=== PATIENT | female | born 1950 | race African-American/Black ===

== ENCOUNTER → 2019-09-06 | Outpatient (CLI) | payer BC ==
[~2019-09-06] MED LIST: ASA81BEC PO; EFFIENT10 MG PO; METFORMIN HCL500 M3 PO; PRAVASTATIN SOD80 MG PO; TOPROL XL50 MG PO; VASCEPA1 GM PO; VITAMIN D310 MC2 PO; ZESTRIL20 MG PO
== END ==
LOC: SJCVCIMAG 09:50
DX: I20.0 Unstable angina (principal); I10 Essential (primary) hypertension; E78.00 Pure hypercholesterolemia, unspecified; R93.1 Abnormal findings on diagnostic imaging of heart and coronary circulation

== ENCOUNTER → 2019-09-09 | Outpatient (CLI) | payer MEDICARE ==
[~2019-09-09] VITALS: Ht 154.9 cm; Wt 73.0 kg
[~2019-09-09] MED LIST changes: -EFFIENT10 MG PO; -VASCEPA1 GM PO
--- NOTE | ~2019-09-09 | EKG ---
[facility] [place] [address] ELECTROCARDIOGRAM REPORT Name: JORGE MAYA Room #: REG [facility]#: [id number] Admission: 09/09/19 Attend Phys: Dhaval Crawford MD Discharge: Date of : 48 Report #: [id number] THIS REPORT FOR: cc: Nolberto Ashford MD, Stanley P. MD Epiphany, Epiphany MD ~ THIS REPORT FOR: //name// [facility] Test Date: 2019-09-09 Test Time: 09:46:11 Pat Name: JORGE MAYA Department: Room: Gender: F Dough Braker: [facility] : 1950 Requested By: Dhaval Crawford Order Number: [id number] MD: Measurements Intervals [place] Rate: 57 P: 33 [place]: 176 QRS: -22 QRSD: 96 T: 42 QT: 433 QTc: 422 Interpretive Statements Sinus rhythm Probable left ventricular hypertrophy Inferior infarct, old No previous ECG available for comparison [email or web address] By: Epiphany Epiphany, /EPI
[2019-09-09 09:59] LABS: HEMATOCRIT 41.2 % (37.0-47.0); HEMOGLOBIN 13.5 gm/dL (12.0-15.0); MCHC 32.8 g/dL (28.0-37.0); MCV 94.7 fL (80.0-100.0); RBC 4.36 mil/uL (4.20-5.00); RDW 13.8 % (10.5-14.5); WBC 4.8 thou/uL (4.0-11.0)
[2019-09-09 10:09] LABS: CALCIUM 9.5 mg/dL (8.5-10.1); CREATININE 1.2 mg/dL (0.6-1.0); POTASSIUM 4.4 mmol/L (3.5-5.1)
[2019-09-09 10:19] VITALS: BP 146/76
--- NOTE | 2019-09-10 09:51 | CATHLAB ---
[facility] [address] [place] [address] INVASIVE PROCEDURE REPORT Name: JORGE MAYA Room #: REG [facility]#: [id number] Admission: 09/09/19 Attend Phys: Dhaval Crawford MD Discharge: Date of : 48 Report #: [id number] THIS REPORT FOR: cc: Nolberto Ashford MD, Stanley P. MD Park, Jin S. MD ~ APPROVED REPORT Study performed: 09/09/2019 10:42:02 Patient Details The patient is a 68 year-old female Event Personnel Dhaval Crawford Electric Razor Mechanic, Deepti Drake RN RN, Annel Pollock, Sharron Clayton Monitor Procedures Performed Art Access - R femoral artery* Left Heart Cath w/or w/o Coronaries [id number] [facility] Hemostasis with Manual pressure 49368 Initial Mod Sed Same Phys/QHP Gr5y 161344 Indication Dyspnea, Unstable angina , Chest pain Risk Factors Hypercholesterolemia, Coronary Artery DiseaseHypertension, Diabetes Procedure Narrative The Right Groin^ was infiltrated with subcutaneous anesthesia. A PINNACLE 4FR Sheath #[id number] sheath was inserted into the RFA 4F^. Coronary angiography was performed using coronary diagnostic catheters. The right coronary system was accessed and visualized with a jr4 catheter. The left coronary system was accessed and visualized with a jl4 catheter. The left ventricle was accessed and visualized with a angle pig catheter. Hemostasis was obtained with manual pressure following sheath removal without any complications. There was no hematoma. Intraoperative Conscious Sedation Sedation start time: 1124 Case end Time: 1140 Fentanyl 50 mcg Versed 1 mg [facility] [address] [place] [address] INVASIVE PROCEDURE REPORT Name: ZULMAJORGE Room #: REG [facility]#: [id number] Admission: 09/09/19 Attend Phys: Dhaval Crawford MD Discharge: Date of : 48 Report #: [id number] Fluoro Time: 3.00 minutes Dose: DAP 4753.00 cGycm2 1299 mGy Contrast Type and Amount: Omnipaque 75 ml Coronary Angiography The patient's coronary anatomy is co- dominant. Diagnostic Cath Left Main The left main artery is a large-caliber vessel, patent with no flow-limiting lesions. LAD There is a severe occlusion in the mid LAD, 70%. The terminal segment of the LAD has severe diffuse disease. Diagonal 1 This is a small to moderate size caliber vessel with a severe proximal stenosis, 80%. Diagonal 2 This is a small to moderate size caliber vessel, patent with no flow-limiting lesions. Circumflex The left circumflex artery is a codominant vessel with a severe occlusion in the mid segment, 90%. OM1 This is a small to moderate size caliber vessel, patent with no flow-limiting lesions. OM2 This is a small to moderate size caliber vessel, with severe diffuse disease OM3 This is a small to moderate size caliber vessel, patent with no flow-limiting lesions. Right Coronary The RCA is totally occluded in the proximal segment. R PDA This vessel is filled via collateral circulation from the LAD. Left Ventriculography The left ventricle is normal in size with normal contractility. The left ventricular ejection fraction is estimated to be 55-60%. Hemodynamics The aortic pressure is 146/76 mmHg with a mean of 105 mmHg. The left ventricular pressure is 151/7 mmHg with a mean of mmHg. The left ventricular end diastolic pressure is 18 mmHg. Conclusion 1. Severe three-vessel coronary artery disease. 2. Codominant system. 3. Normal LV systolic function. [facility] [address] [place] [address] INVASIVE PROCEDURE REPORT Name: JORGE MAYA Room #: REG [facility]#: [id number] Admission: 09/09/19 Attend Phys: Dhaval Crawford MD Discharge: Date of : 48 Report #: [id number] 4. Recommend aggressive risk factor management and CV consultation for surgery. <ELECTRONICALLY SIGNED> By: Dhaval Crawford MD 09/10/1951 9 9 Dhaval Crawford MD /INF
== END | disposition home or self-care (01) ==
LOC: CATH 08:58
PROVIDERS: Internal Medicine Cardiovascular Disease
DX: I25.110 Atherosclerotic heart disease of native coronary artery with unstable angina pectoris (principal); R07.9 Chest pain, unspecified; I10 Essential (primary) hypertension; E11.9 Type 2 diabetes mellitus without complications; E78.00 Pure hypercholesterolemia, unspecified; Z98.890 Other specified postprocedural states; Z79.899 Other long term (current) drug therapy; Z85.3 Personal history of malignant neoplasm of breast; Z79.82 Long term (current) use of aspirin; R06.00 Dyspnea, unspecified

== ENCOUNTER 2019-09-26 07:46 | Outpatient (CLI) | payer MEDICARE ==
[~2019-09-26] VITALS: Ht 162.6 cm; Wt 76.0 kg
[2019-09-26 08:20] VITALS: BP 144/86
[2019-09-26] MEDS ORDERED: EFFIENT10 MG PO (08:35)
[2019-09-26] MEDS ORDERED: VASCEPA1 GM PO (08:35)
[2019-09-26 08:56] LABS: HEMATOCRIT 36.9 % (37.0-47.0); HEMOGLOBIN 12.3 gm/dL (12.0-15.0); MCH 31.5 pg (26.0-34.0); MCHC 33.3 g/dL (28.0-37.0); MCV 94.5 fL (80.0-100.0); RBC 3.9 mil/uL (4.20-5.00); RDW 13.4 % (10.5-14.5); WBC 3.6 thou/uL (4.0-11.0)
[2019-09-26 08:59] LABS: CALCIUM 9.8 mg/dL (8.5-10.1); CREATININE 1.3 mg/dL (0.6-1.0); POTASSIUM 3.7 mmol/L (3.5-5.1)
[2019-09-26 11:30] VITALS: BP 137/66
--- NOTE | 2019-09-26 12:59 | CATHLAB ---
[facility] [place] [address] INVASIVE PROCEDURE REPORT Name: JORGE MAYA Room #: REG CHANTAL Sirisha.#: [id number] Admission: 09/26/19 Attend Phys: Dhaval Crawford MD Discharge: Date of : 48 Report #: [id number] THIS REPORT FOR: cc: Nolberto Ashford MD, Stanley P. MD Park, Jin S. MD ~ APPROVED REPORT Study performed: 09/26/2019 08:51:33 Patient Details Patient Status: Out-Patient Room #: The patient is a 68 year-old female Event Personnel Dhaval Crawford Costumed Character Entertainer, Katerine Jin RN RN, Chan Ferrara RTBrody Ortega David Monitor Procedures Performed BAILEY Place w/wo Plasty Single CIRC [id number] Indication Dyspnea, Unstable angina , Chest pain, The patient presented with unstable angina, cardiac catheterization on September 09 revealed severe multivessel disease. The RCA is occluded with partial collateral filling to a small PDA. The patient has severe disease in small vessels including the diagonal and OM vessels. The apical LAD has severe diffuse disease. She did undergo a consultation with CV surgery, deemed not a good candidate for open heart surgery. She presents for elective PCI. Risk Factors Hypercholesterolemia, Coronary Artery DiseaseHypertension, Diabetes Procedure Narrative The Right Groin^ was infiltrated with 1% Lidocaine subcutaneous anesthesia. A PINNACLE 6FR Sheath #[id number] sheath was inserted into the RFA^. Coronary angiography was performed using coronary diagnostic catheters. Closure device was deployed with a 6 Fr MYNX. The patient tolerated the procedure well and there were no complications associated with the procedure. Intraoperative Conscious Sedation Sedation start time: 9.57 Case end Time: [facility] [address] [place] [address] INVASIVE PROCEDURE REPORT Name: JORGE MAYA Room #: REG [facility]#: [id number] Admission: 09/26/19 Attend Phys: Dhaval Crawford MD Discharge: Date of : 48 Report #: [id number] 10.51 Fentanyl 50 mcg Versed 1 mg Fluoro Time: 11.25 minutes Dose: DAP 79133.20 cGycm2 1928 mGy Contrast Type and Amount: Visipaque 210 ml [place] Artery Percent Stenosis Please see the cardiac catheterization report from September 09 for full details of her coronary anatomy. She presents electively for PCI of the left circumflex arteries. Diagnostic Cath Circumflex The left circumflex artery is a codominant vessel with severe occlusions in the proximal and mid segments. The first and third OM vessels are small caliber vessels with severe stenoses. The distal left circumflex artery and OM vessels are widely patent with no flow-limiting lesions. Hemodynamics The aortic pressure is 149/69 mmHg with a mean of 63 mmHg. PCI Technique Lesion Percutaneous coronary intervention was performed on the mid circumflex artery segment. The lesion stenosis prior to intervention was 90% with ANTONIO 3 flow. A VISTA 6FR XB 3.5 #[id number] Guide Catheter was used to engage the ostium. A Luge Wire .014 x 182CM #[id number] Interventional Guidewire was used to cross the lesion. BALLOON DILATION A Balloon catheter Euphora RX 2.25 x 15 #[id number] was inserted and inflated up to 14.00atm for 23seconds. Additional Inflation: 14.00atm for 20seconds. Additional Inflation: 14.00atm for 9seconds. STENT DEPLOYMENT A drug-eluting stent RESOLUTE RUTH RX 2.75 X 22 #[id number] was inserted and inflated up to 12.00atm for 19seconds. POST STENT DEPLOYMENT BALLOON DILATION A Balloon catheter TREK NC RX 2.75 X 15 #[id number] was inserted and inflated up to 18.00atm for 25seconds. Additional Inflation: 18.00atm for 13seconds. Final angiography reveals 0 % stenosis with ANTONIO 3 flow. PCI Technique Lesion [address] [address] INVASIVE PROCEDURE REPORT Name: JORGE MAYA [facility] [id number] Admission: 09/26/19 Attend Phys: Dhaval Crawford MD Discharge: Date of : 48 Report #: [id number] Percutaneous coronary intervention was performed on the proximal circumflex artery segment. The lesion stenosis prior to intervention was 80% with ANTONIO 3 flow. A VISTA 6FR XB 3.5 #[id number] Guide Catheter was used to engage the ostium. A Luge Wire .014 x 182CM #[id number] Interventional Guidewire was used to cross the lesion. Balloon Dilation A Balloon catheter Euphora RX 2.25 x 15 #[id number] was inserted and inflated up to 15atm for 26seconds. Stent Deployment A drug-eluting stent RESOLUTE RUTH RX 3.0 X 12 #[id number] was inserted and inflated up to 15atm for 26seconds. Post Stent Deployment Balloon Dilation A Balloon catheter TREK NC RX 3.0 X 12 #[id number] was inserted and inflated up to 18atm for 15seconds. Additional Inflation: 18atm for 22seconds. Final angiography reveals 0 % stenosis with ANTONIO 3 flow. Conclusion 1. Successful insertion of 2 drug-eluting stents into the proximal and mid segments of a codominant left circumflex artery. 2. Recommend dual antiplatelet therapy and aggressive risk factor management. <ELECTRONICALLY SIGNED> By: Dhaval Crawford MD 09/26/19 1258 1258 1258 Dhaval Crawford MD /INF
[2019-09-26 16:30] VITALS: BP 141/70
--- NOTE | 2019-09-26 19:03 | NUR ---
PT TO 211 AT 1330 FROM RESIDENTIAL BUILDER, RIGHT GROIN MYNX CDI, NO BLEEDING, NO HEMATOMA NOTED ON PALPATION, ASSESSED, VSS, A+O X 4, FAMILY AT BEDSIDE, REVIEWED POC, PT AND HER BOTH VERBALIZED UNDERSTANDING, REVIEWED STAFF, BEDROOM, CALL LIGHT BY PT'S RIGHT HAND, PT AMBULATED AT 1500, SLOW, STEADY GAIT, VOIDED IN BATHROOM, MISSED THE HAT, RESTING IN BED.
[2019-09-26 19:28] VITALS: BP 126/65
[2019-09-27 00:21] VITALS: BP 143/68
[2019-09-27 05:05] VITALS: BP 154/74
--- NOTE | 2019-09-27 05:26 | NUR ---
ASSUMED PT CARE AT 1900. PT IS ALERT AND ORIENTED, NO SIGN OF DISTRESS NOTED IN PT. RIGHT GROIN SITE IS INTACT, NO BLEEDING OR BRUSING NOTED. DENIES ANY PAIN. ASSESSMENT COMPLETED AND DOCUMENTED. PT IS STABLE THROUGHOUT THE NIGHT. DENIES ANY FURTHER NEEDS AT THIS TIME.
[2019-09-27 05:46] LABS: HEMATOCRIT 34.5 % (37.0-47.0); HEMOGLOBIN 11.5 gm/dL (12.0-15.0); MCH 31.5 pg (26.0-34.0); MCHC 33.2 g/dL (28.0-37.0); MCV 94.9 fL (80.0-100.0); RBC 3.63 mil/uL (4.20-5.00); RDW 13.6 % (10.5-14.5); WBC 5.7 thou/uL (4.0-11.0)
[2019-09-27 06:03] LABS: ALBUMIN 3.3 g/dL (3.4-5.0); CALCIUM 8.6 mg/dL (8.5-10.1); CREATININE 1.2 mg/dL (0.6-1.0); POTASSIUM 3.8 mmol/L (3.5-5.1); TOTAL BILIRUBIN 1.2 mg/dL (<0.1-1.0); TOTAL PROTEIN 6.1 g/dL (6.4-8.2)
[2019-09-27 07:18] VITALS: BP 148/72
--- NOTE | 2019-09-27 09:29 | EKG ---
[facility] [place] [address] ELECTROCARDIOGRAM REPORT Name: JORGE MAYA Room #: 211-P [facility]#: [id number] Admission: 09/26/19 Attend Phys: Dhaval Crawford MD Discharge: Date of : 48 Report #: [id number] THIS REPORT FOR: cc: Nolberto Ashford MD, Stanley P. MD Lundgren,Tye Díaz MD [facility] ~ THIS REPORT FOR: //name// [facility] Test Date: 2019-09-26 Test Time: 08:20:34 Pat Name: JORGE MAYA Department: Room: Gender: Assistance Coordinator: Izabel FAITH : 1950 Requested By: Dhaval Crawford Order Number: [id number] MD: Tye Hernandez Measurements Intervals [place] Rate: 53 P: 42 [place]: 177 QRS: -16 QRSD: 99 T: 54 QT: 463 QTc: 435 Interpretive Statements Sinus rhythm Nonspecific ST segment abnormality Compared to ECG 09/09/2019 09:46:11 No significant change was found Electronically Signed On 09-27-2019 9:28:48 BED RUBBER by Tye Hernandez [email or web address] <ELECTRONICALLY SIGNED> By: Tye Hernandez MD, FAC 09/27/19 0928 9 9 Tye Hernandez MD, [facility] /EPI
--- NOTE | 2019-09-27 09:36 | EKG ---
[facility] [place] [address] ELECTROCARDIOGRAM REPORT Name: JORGE MAYA Room #: 211-P [facility]#: [id number] Admission: 09/26/19 Attend Phys: Dhaval Crawford MD Discharge: Date of : 48 Report #: [id number] THIS REPORT FOR: cc: Nolberto Ashford MD, Stanley P. MD Lundgren,Tye Díaz MD [facility] THIS REPORT FOR: //name// [facility] Test Date: 2019-09-26 Test Time: 13:00:56 Pat Name: JORGE MAYA Department: Room: Gender: Stakes Player: Izabel FAITH : 1950 Requested By: Dhaval Crawford Order Number: [id number] MD: Tye Hernandez Measurements Intervals [place] Rate: 59 P: 5 [place]: 191 QRS: -1 QRSD: 91 T: 51 QT: 449 QTc: 445 Interpretive Statements Sinus rhythm Borderline T abnormalities, lateral leads Compared to ECG 09/09/2019 09:46:11 T-wave abnormality now present Electronically Signed On 09-27-2019 9:35:10 SALES CORRESPONDENCE CLERK by Tye Hernandez [email or web address] <ELECTRONICALLY SIGNED> By: Tye Hernandez MD, FAC 09/27/19 0935 1300 1300 Tye Hernandez MD, [facility] /EPI
[2019-09-27 10:13] VITALS: BP 148/72
--- NOTE | 2019-09-27 11:00 | NUR ---
ASSUMED CARE 0700. ALERT X4 FROM HOME WITH SPOUCE, DENIES CHEST PAIN, DENIES SOB, RIGHT GROIN SITE C/D/I, UP AB ABDI. CARDIAC GINSENG FARMER EDUCATED PATIENT ON CATH SITE CARE. PRIMARY RN REVIEWED POST CARDIAC CATH CARE, HOME MEDICATIONS, DISCHARGE PAPERS, AND FOLLOW UP DR APPOINTMENT. SINUS LARISSA ON TELE. IV AND TELE REMOVED. WILL DC HOME WITH SELF CARE.
--- NOTE | 2019-09-27 16:33 | EKG ---
[facility] [place] [address] ELECTROCARDIOGRAM REPORT Name: JORGE MAYA Room #: DEP [facility]#: [id number] Admission: 09/26/19 Attend Phys: Dhaval Crawford MD Discharge: 09/27/19 Date of : 48 Report #: [id number] THIS REPORT FOR: cc: Nolberto Ashford MD, Stanley P. MD Park, Jin S. MD ~ THIS REPORT FOR: //name// [facility] Test Date: 2019-09-27 Test Time: 08:00:27 Pat Name: JORGE MAYA Department: Room: [facility] Gender: F Refrigerator Tester: OLI : 1950 Requested By: Dhaval Crawford Order Number: [id number] MD: Dhaval Crawford Measurements Intervals [place] Rate: 56 P: 54 [place]: 181 QRS: -17 QRSD: 93 T: 55 QT: 454 QTc: 439 Interpretive Statements Sinus rhythm Borderline left axis deviation Compared to ECG 09/09/2019 09:46:11 Myocardial infarct finding no longer present Electronically Signed On 09-27-2019 16:31:50 MACHINIST WOOD by Dhaval Crawford [email or web address] <ELECTRONICALLY SIGNED> By: Dhaval Crawford MD 09/27/19 1631 9 9 Dhaval Crawford MD /JUWAN
[2019-09-27 22:07] LABS: GLYCOHEMOGLOBIN (HGB A1C) 5.8 % (4.8-5.6)
--- NOTE | 2019-09-28 08:28 | D ---
[facility] [place] [address] DISCHARGE SUMMARY Name: JORGE MAYA [facility] [id number] Admission: 09/26/19 Attend Phys: Dhaval Crawford MD Discharge: 09/27/19 Date of : 48 Report #: [id number] THIS REPORT FOR: cc: Nolberto Ashford MD, Stanley P. MD Park, Jin S. MD ~ THIS REPORT FOR: //name// CC: Dhaval Ashford DATE OF SERVICE: 09/27/2019 FINAL DIAGNOSES: 1. Coronary artery disease, status post percutaneous coronary intervention. 2. Diabetes mellitus. 3. Hypertension. 4. Hypercholesterolemia. 5. Gastroesophageal reflux disease. HOSPITAL COURSE: See the original H and P for full details. The patient presented with chest pain, shortness of breath with walking. She had an abnormal stress test. Cardiac catheterization revealed severe multivessel disease. She did undergo a consultation with CV Surgery. She was deemed not a suitable candidate for bypass as she has significant disease in small vessels as well as diffuse distal disease. She underwent PCI with placement of 2 drug-eluting stents into the proximal and mid segments of the left circumflex artery. She does have mild renal insufficiency and the creatinine is stable. She will be discharged home today. She will continue with aspirin once a day, lisinopril 20 mg daily, metformin, Pravachol, metoprolol, prasugrel 10 mg daily and Vascepa. She will be given a followup appointment in the office. <ELECTRONICALLY SIGNED> By: Dhaval Crawford MD 09/28/19 0828 0853 0909 Dhaval Crawford MD /nt
== END 2019-09-27 11:35 | disposition home or self-care (01) ==
LOC: CATH 07:46 → 2N 14:07 → CATH 14:40
PROVIDERS: Internal Medicine Cardiovascular Disease
DX: I25.110 Atherosclerotic heart disease of native coronary artery with unstable angina pectoris (principal); R06.00 Dyspnea, unspecified; R07.9 Chest pain, unspecified; I10 Essential (primary) hypertension; E11.9 Type 2 diabetes mellitus without complications; E78.00 Pure hypercholesterolemia, unspecified; Z85.3 Personal history of malignant neoplasm of breast; Z79.4 Long term (current) use of insulin; Z98.890 Other specified postprocedural states; Z79.899 Other long term (current) drug therapy; Z79.82 Long term (current) use of aspirin
CPT/HCPCS: 10081

== ENCOUNTER 2019-10-22 09:28 | Observation (INO) | payer MEDICARE ==
[2019-10-22] VITALS (12 sets, daily range): BP systolic 107–154; BP diastolic 50–81
[~2019-10-22] VITALS: Ht 154.9 cm; Wt 68.5 kg
[2019-10-22 07:35] LABS: HEMATOCRIT 36.1 % (37.0-47.0); HEMOGLOBIN 12.1 gm/dL (12.0-15.0); MCH 32.1 pg (26.0-34.0); MCHC 33.6 g/dL (28.0-37.0); MCV 95.5 fL (80.0-100.0); RBC 3.78 mil/uL (4.20-5.00); RDW 13.6 % (10.5-14.5); WBC 3.2 thou/uL (4.0-11.0)
[2019-10-22 07:42] LABS: CALCIUM 9.7 mg/dL (8.5-10.1); CREATININE 1.1 mg/dL (0.6-1.0); POTASSIUM 3.8 mmol/L (3.5-5.1)
--- NOTE | 2019-10-22 08:29 | EKG ---
[facility] [place] [address] ELECTROCARDIOGRAM REPORT Name: JORGE MAYA Room #: PRE [facility].#: [id number] Admission: Attend Phys: Dhaval Crawford MD Discharge: Date of : 48 Report #: [id number] THIS REPORT FOR: cc: Nolberto Ashford MD, Stanley P. MD Lundgren, Craig H. MD [facility] ~ THIS REPORT FOR: //name// [facility] Test Date: 2019-10-22 Test Time: 06:55:49 Pat Name: JORGE MAYA Department: Room: Gender: F Cream Hauler: OLI : 1950 Requested By: Dhaval Crawford Order Number: [id number] MD: Tye Hernandez Measurements Intervals [place] Rate: 51 P: 39 [place]: 181 QRS: -22 QRSD: 98 T: 43 QT: 466 QTc: 430 Interpretive Statements Sinus bradycardia Otherwise no significant abnormality Compared to ECG 09/27/2019 08:00:27 No significant changes Electronically Signed On 10-22-2019 8:28:10 CDT by Tye Hernandez [email or web address] <ELECTRONICALLY SIGNED> By: Tye Hernandez MD, [facility] 10/22/19827 4 4 Tye Hernandez MD, [facility] /EPI
[~2019-10-22 09:28] MED LIST changes: +EFFIENT10 MG PO; +IMDUR 30 MG TAB30 M1 PO; +LIPITOR40 MG PO; +VASCEPA1 GM PO
--- NOTE | 2019-10-22 10:12 | EKG ---
[facility] [place] [address] ELECTROCARDIOGRAM REPORT Name: JORGE MAYA Room #: REG [facility]#: [id number] Admission: 10/22/19 Attend Phys: Dhaval Crawford MD Discharge: Date of : 48 Report #: [id number] THIS REPORT FOR: cc: Nolberto Ashford MD, Stanley P. MD Couchonnal,Diego Khan MD ~ THIS REPORT FOR: //name// [facility] Test Date: 2019-10-22 Test Time: 09:34:44 Pat Name: JORGE MAYA Department: Room: Gender: F Cardiovascular Surgical Tech: [facility] : 1950 Requested By: Dhaval Crawford Order Number: [id number] MD: Diego Ramirez Measurements Intervals [place] Rate: 53 P: 54 [place]: 185 QRS: -19 QRSD: 101 T: 74 QT: 471 QTc: 443 Interpretive Statements Sinus rhythm Borderline left axis deviation Compared to ECG 10/22/2019 06:55:49 Sinus bradycardia no longer present Electronically Signed On 10-22-2019 10:10:59 CDT by Diego Ramirez [email or web address] <ELECTRONICALLY SIGNED> By: Diego Ramirez MD 10/22/19 1010 0934 Diego Ramirez MD /EPI
--- NOTE | 2019-10-22 13:49 | CATHLAB ---
[facility] [place] [address] INVASIVE PROCEDURE REPORT Name: JORGE MAYA Room #: 207-P [facility] Tim Pichardo#: [id number] Admission: 10/22/19 Attend Phys: Dhaval Crawford MD Discharge: Date of : 48 Report #: [id number] THIS REPORT FOR: cc: Nolberto Ashford MD, Stanley P. MD Park, Jin S. MD ~ APPROVED REPORT Study performed: 10/22/2019 07:31:53 Patient Details Patient Status: Out-Patient Room #: The patient is a 68 year-old female Event Personnel Dhaval Crawford Silo Filler, Makayla Leonard RTR, GRAIN SCOOPER Monitor, Deepti Drake RN RN, Sharron Clayton Procedures Performed Art Access - L femoral artery* BAILEY Place w/wo Plasty Single LAD 069155 87637 Initial Mod Sed Same Phys/QHP Gr5y 080947 89172 Mod Sed Same Phys/QHP Ea 987536 Hemostasis w/ Mynx Indication Dyspnea, Chest pain, The patient returns for a staged angioplasty involving the LAD. She has multivessel disease, did undergo a CV consultation. She was deemed a poor candidate as she had severe disease in small caliber vessels, as well as severe distal disease. Risk Factors Hypercholesterolemia, Coronary Artery DiseaseHypertension, Diabetes Previous Procedures/Diagnoses Previous PCI Procedure Narrative The Left Groin^ was infiltrated with 1% Lidocaine subcutaneous anesthesia. A PINNACLE 6FR Sheath #[id number] sheath was inserted into the LFA^. Coronary angiography was performed using coronary diagnostic catheters. The left coronary system was accessed and visualized with a VISTA 6FR XB 3.5 #[id number] catheter. Pre-demployment femoral angiogram was performed . Closure device was deployed with a 6 Fr MYNXGRIP 6/7F #[id number]. The patient tolerated the procedure well [address] [address] INVASIVE PROCEDURE REPORT Name: DANNIE MAYAINE Room #: 207-[facility] IN M.R.#: [id number] Admission: 10/22/19 Attend Phys: Dhaval Crawford MD Discharge: Date of : 48 Report #: [id number] and there were no complications associated with the procedure. There was no hematoma. Intraoperative Conscious Sedation Sedation start time: 08:03 Case end Time: 09:00 Fentanyl 100 mcg Versed 1 mg Fluoro Time: 11.29 minutes Dose: DAP 7577.30 cGycm2 1106 mGy Contrast Type and Amount: Omnipaque 180 ml Coronary Angiography The patient's coronary anatomy is co- dominant. Diagnostic Cath LAD There is a severe occlusion involving the proximal/mid LAD segment, 80%. Diagonal 1 This is a small-caliber vessel with a severe ostial stenosis. Circumflex This is a codominant vessel, with patent stents in the mid segments. OM1 This is a small-caliber vessel with a severe ostial stenosis. OM2 This is a patent vessel, with no flow-limiting lesions. OM3 This is a patent vessel, with no flow-limiting lesions. Right Coronary The RCA is occluded, the distal vessel filled via collateral circulation. Hemodynamics The aortic pressure is 156/71 mmHg with a mean of 105 mmHg. PCI Technique Lesion Percutaneous coronary intervention was performed on the proximal/mid left anterior descending artery segment. The lesion stenosis prior to intervention was 80% with ANTONIO flow. A VISTA 6FR XB 3.5 #[id number] Guide Catheter was used to engage the ostium. A Luge Wire .014 x 182CM #[id number] Interventional Guidewire was used to cross the lesion. BALLOON DILATION A Balloon catheter Euphora RX 2.25 x 15 #[id number] was inserted and inflated up to 12.00atm for 24seconds. Additional Inflation: 14.00atm for 30seconds. [facility] [address] [address] INVASIVE PROCEDURE REPORT Name: JORGE MAYA Room #: 207-P [facility] IN [facility].#: [id number] Admission: 10/22/19 Attend Phys: Dhaval Crawford MD Discharge: Date of : 48 Report #: [id number] STENT DEPLOYMENT A drug-eluting stent RESOLUTE RUTH RX 2.75 X 30 #[id number] was inserted and inflated up to 16.00atm for 26seconds. POST STENT DEPLOYMENT BALLOON DILATION A Balloon catheter TREK NC RX 3.0 X 15 #[id number] was inserted and inflated up to 18.00atm for 14seconds. Additional Inflation: 18.00atm for 16seconds. Final angiography reveals 0 % stenosis with NATONIO 3 flow. Conclusion 1. Successful insertion of a drug-eluting stent into the proximal/mid LAD segment. There is severe diffuse disease in the apical LAD. 2. There are patent stents in the left circumflex artery. 3. Severe disease in small caliber vessels including first diagonal artery and OM1. 4. Occluded RCA with distal collateral. 5. Recommend dual antiplatelet therapy and aggressive risk factor management. <ELECTRONICALLY SIGNED> By: Dhaval Crawford MD 10/22/19 1348 1348 1348 Dhaval Crawford MD /INF
--- NOTE | 2019-10-22 18:21 | NUR ---
PT CARE ASSUMED APPROXIMATELY 1030. PT ASSESSMENTS CHARTED. POST CATH. LEFT GROIN STENT, MYNX CLOSURE. SOFT C/D/I, NO DRAINAGE. HEMOSTASIS AT 0858. VSS. PT DENIES PAIN. UP AD ABDI.
[2019-10-23 00:13] VITALS: BP 129/72
--- NOTE | 2019-10-23 03:56 | NUR ---
ASSESSMENTS CHARTED, MEDS CHARTED GIVEN. PATIENT RESTING IN BED DURING SHIFT. SHE IS OFF BEDREST POST CATH PROCEDURE WHERE SHE RECEIVED A STENT TO HER MID LAD. HER LEFT GROIN WAS ACCESSED FOR THE CATH, THE SITE IS CLEAN, DRY INTACT, AND SOFT. PATIENT IS UP AT ABDI IN ROOM. FALL PRECAUTIONS IN PLACE. C/O PAIN ONCE DURING SHIFT. PLAN OF CARE IS TO CONTINUE OUTPATIENT TO CARDIAC REHAB, PLAN TO GO HOME TODAY.
[2019-10-23 04:45] VITALS: BP 147/77
[2019-10-23 07:46] LABS: HEMATOCRIT 39.7 % (37.0-47.0); HEMOGLOBIN 13.2 gm/dL (12.0-15.0); MCH 31.6 pg (26.0-34.0); MCHC 33.4 g/dL (28.0-37.0); MCV 94.8 fL (80.0-100.0); RBC 4.19 mil/uL (4.20-5.00); RDW 13.8 % (10.5-14.5); WBC 4.6 thou/uL (4.0-11.0)
[2019-10-23 07:57] LABS: CALCIUM 10.3 mg/dL (8.5-10.1); CREATININE 1.1 mg/dL (0.6-1.0); POTASSIUM 3.9 mmol/L (3.5-5.1); TOTAL BILIRUBIN 0.8 mg/dL (<0.1-1.0); TOTAL PROTEIN 7.4 g/dL (6.4-8.2)
[2019-10-23 08:00] VITALS: BP 125/37
--- NOTE | 2019-10-23 09:51 | EKG ---
[facility] [place] [address] ELECTROCARDIOGRAM REPORT Name: JORGE MAYA Room #: 207-[facility] M.R.#: [id number] Admission: 10/22/19 Attend Phys: Dhaval Crawford MD Discharge: Date of : 48 Report #: [id number] THIS REPORT FOR: cc: Nolberto Ashford MD, Stanley P. MD Lundgren,Tye Díaz MD [facility] ~ THIS REPORT FOR: //name// [facility] Test Date: 2019-10-23 Test Time: 07:06:53 Pat Name: JORGE MAYA Department: Room: [facility] Gender: F Residential Caregiver: OLI : 1950 Requested By: Dhaval Crawford Order Number: [id number] MD: Tye Hernandez Measurements Intervals [place] Rate: 56 P: 54 AK: 181 QRS: -13 QRSD: 100 T: 59 QT: 449 QTc: 434 Interpretive Statements Sinus bradycardia Otherwise no significant abnormality Compared to ECG 10/22/2019 09:34:44 No significant changes Electronically Signed On 10-23-2019 9:49:47 CDT by Tye Hernandez [email or web address] <ELECTRONICALLY SIGNED> By: Tye Hernandez MD, FACC 10/23/19 0949 [id number] Tye Hernandez MD, [facility] /EPI
[2019-10-23 09:52] VITALS: BP 125/57
--- NOTE | 2019-10-23 11:18 | NUR ---
ASSUMED CARE 0700. ALERT X4, FROM HOME, DENIES PAIN, DENIES CHEST PAIN, DENIES SOB. UP AB ABDI. LEFT GROIN C/D/I. DC HOME WITH HOME CARE, CARDIAC REHAB NURSE ROUNDING AND REVIEWED POST CATH CARE. NSR ON TELE TO LARISSA. IV AND TELE REMOVED. DC HOME WITH TRANSPORTING
== END 2019-10-23 11:15 | disposition home or self-care (01) ==
LOC: CATH 09:28 → 2N 10:57 → CATH 14:43 → 2N 10-23 11:15
PROVIDERS: ADMIT Internal Medicine Cardiovascular Disease
DX: I25.10 Atherosclerotic heart disease of native coronary artery without angina pectoris (principal); I10 Essential (primary) hypertension; E78.00 Pure hypercholesterolemia, unspecified; E11.9 Type 2 diabetes mellitus without complications

== ENCOUNTER → 2020-05-14 | Outpatient (CLI) | payer MEDICARE | LOC: SJCVC 12:29 | PROVIDERS: ATTEND Internal Medicine Cardiovascular Disease | DX: R94.31 Abnormal electrocardiogram [ECG] [EKG] (principal); I10 Essential (primary) hypertension; I25.10 Atherosclerotic heart disease of native coronary artery without angina pectoris; E78.00 Pure hypercholesterolemia, unspecified; E11.9 Type 2 diabetes mellitus without complications; E78.1 Pure hyperglyceridemia; Z79.899 Other long term (current) drug therapy ==

== ENCOUNTER → 2020-10-29 | Outpatient (CLI) | payer MEDICARE | LOC: SJCVCIMAG 08:56 | PROVIDERS: ATTEND Internal Medicine Cardiovascular Disease | DX: I25.89 Other forms of chronic ischemic heart disease (principal); I25.119 Atherosclerotic heart disease of native coronary artery with unspecified angina pectoris; I10 Essential (primary) hypertension; E78.00 Pure hypercholesterolemia, unspecified; E78.1 Pure hyperglyceridemia; Z79.82 Long term (current) use of aspirin; Z79.84 Long term (current) use of oral hypoglycemic drugs; Z79.899 Other long term (current) drug therapy; Z72.89 Other problems related to lifestyle; K21.9 Gastro-esophageal reflux disease without esophagitis ==

== ENCOUNTER → 2021-04-30 | Outpatient (CLI) | payer MEDICARE | LOC: SJCVC 10:03 | PROVIDERS: ATTEND Internal Medicine Cardiovascular Disease | DX: R94.31 Abnormal electrocardiogram [ECG] [EKG] (principal); I25.119 Atherosclerotic heart disease of native coronary artery with unspecified angina pectoris; I10 Essential (primary) hypertension; E78.00 Pure hypercholesterolemia, unspecified; E78.1 Pure hyperglyceridemia; E11.9 Type 2 diabetes mellitus without complications; K21.9 Gastro-esophageal reflux disease without esophagitis; E78.5 Hyperlipidemia, unspecified; Z72.89 Other problems related to lifestyle; Z79.82 Long term (current) use of aspirin; Z79.899 Other long term (current) drug therapy ==